=== PATIENT | male | born 1985 | race Caucasian/White ===

== ENCOUNTER 2025-09-25 08:01 | Outpatient (CLI) | payer BC, SELFPAY ==
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
== END 2025-09-25 08:02 | disposition home or self-care (01) ==
LOC: CT 08:01
PROVIDERS: PCP Family Medicine; Visit Provider Family Medicine
DX: M25.522 Pain in left elbow (principal); S59.902A Unspecified injury of left elbow, initial encounter
CPT/HCPCS: 73200